=== PATIENT | female | born 1935 | race Caucasian/White ===

== ENCOUNTER 2017-07-13 11:06 | Emergency (ER) | payer MEDICAID, OTHER ==
[~2017-07-13] VITALS: Ht 124.5 cm; Wt 53.2 kg
[2017-07-13 11:17] LABS: GLUCOSE,POINT OF CARE 104 MG/DL (70-110)
[2017-07-13] MEDS ORDERED: SIMV-259 PO (11:19)
[2017-07-13] MEDS ORDERED: ASPI-556 PO (11:19)
[2017-07-13] MEDS ORDERED: AMLO-511 PO (11:19)
[2017-07-13] MEDS ORDERED: RIVA20TA PO (11:19)
[2017-07-13 12:39] LABS: BASOPHILS % (AUTO) 1.1 % (0.0-2.0); EOSINOPHILS % (AUTO) 1.2 % (1.0-6.0); HEMOGLOBIN 8.3 g/dL (12.0-16.0); LYMPHOCYTES # (AUTO) 2.2 K/uL (1.0-4.8); LYMPHOCYTES % (AUTO) 18.3 % (22.0-44.0); MEAN CORPUSCULAR HEMOGLOBIN 25.2 pg (26.0-34.0); MEAN CORPUSCULAR VOLUME 76 fL (80-100); MONOCYTES # (AUTO) 0.6 K/uL (0.1-1.0); MONOCYTES % (AUTO) 5.4 % (2.0-9.0); NEUTROPHILS # (AUTO) 8.7 K/uL (1.8-7.7); RED BLOOD CELL COUNT(AUTO) 3.27 MIL/uL (4.00-5.20); RED CELL DISTRIBUTION WIDTH 18.5 % (11.5-14.5); WHITE BLOOD COUNT (AUTO) 11.8 K/uL (4.5-11.0)
[2017-07-13 12:46] LABS: CALCIUM, TOTAL 8.4 mg/dL (8.8-10.5); CREATININE 0.92 mg/dL (0.60-1.30); POTASSIUM 4.5 mmol/L (3.5-5.1)
[2017-07-13 12:50] LABS: INR 1.6 (0.9-1.1); PROTHROMBIN TIME 16.6 SEC (9.4-11.6)
[2017-07-13 12:57] LABS: PLATELET COUNT (AUTO) 902 K/uL (150-450); RBC MORPHOLOGY COMMENT ABNORMAL RBC MORPH
[2017-07-13 13:25] VITALS: BP 120/48
== END 2017-07-13 13:59 | disposition home or self-care (01) ==
LOC: EMS 11:10
DX: S01.01XA Laceration without foreign body of scalp, initial encounter (principal); E11.9 Type 2 diabetes mellitus without complications; I10 Essential (primary) hypertension; I48.91 Unspecified atrial fibrillation; E78.00 Pure hypercholesterolemia, unspecified; Z79.01 Long term (current) use of anticoagulants; Z79.82 Long term (current) use of aspirin; Z88.0 Allergy status to penicillin; W01.0XXA Fall on same level from slipping, tripping and stumbling without subsequent striking against object, initial encounter; Y93.89 Activity, other specified; Y92.89 Other specified places as the place of occurrence of the external cause; Y99.8 Other external cause status
CPT/HCPCS: 12011; 70551; 82962; 99285